=== PATIENT | male | born 1940 | race Caucasian/White ===

== ENCOUNTER 2022-03-24 18:41 | Inpatient (IN) | payer MEDICARE, SELFPAY ==
[2022-03-24 18:45] VITALS: BP 124/59; PULSE 120; RESP 18; O2SAT 95; BMI 18.3
--- NOTE | 2022-03-24 18:46 | XRR_ITS ---
PROCEDURE INFORMATION: Exam: XR Chest Exam date and time: 03/24/2022 6:51 PM Age: 81 years old Clinical indication: Shortness of breath; Additional info: SOB TECHNIQUE: Imaging protocol: Radiologic exam of the chest. Views: 1 view. COMPARISON: CR XR chest 2V* [id number] 03/21/2017 7:21 AM FINDINGS: Lungs: Severe emphysematous lung disease. Hyperinflated lungs. Right upper lobe opacities are nonspecific with significant distortion secondary to rightward chest rotation. Pleural spaces: Unremarkable. No pleural effusion. No pneumothorax. Heart/Mediastinum: Unremarkable. No cardiomegaly. Bones/joints: Unremarkable. XR/XR chest 1V portable [id number] IMPRESSION: 1. Right upper lobe pneumonia, fibrosis or mass cannot be excluded. Radiographic follow-up is recommended with neutral position PA and lateral views. 2. Severe centrilobular emphysema.
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
--- NOTE | 2022-03-24 18:54 | ECG_ITS ---
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 Measurements Intervals [place] Rate: 113 P: 0 DC: 0 QRS: 104 QRSD: 130 T: -28 QT: 302 QTc: 415 Interpretive Statements Multifocal atrial tachycardia RIGHT AXIS DEVIATION [QRS AXIS > 100] RIGHT BUNDLE BRANCH BLOCK [120+ ms QRS DURATION, UPRIGHT V1, 40+ ms S IN I/aVL/V4/V5/V6] ST DEVIATION AND MARKED T-WAVE ABNORMALITY, CONSIDER ANTEROLATERAL ISCHEMIA [-0.5+ mV T-WAVE IN I/aVL/V3-V6] ST DEVIATION AND MODERATE T-WAVE ABNORMALITY, CONSIDER INFERIOR ISCHEMIA [-0.1+ mV T-WAVE IN II/aVF] Features of right ventricular hypertrophy Compared to ECG 03/19/2017 04:59:41 Right-axis deviation now present.T-wave abnormality now present Possible ischemia now present.Sinus rhythm no longer present Electronically Signed On 03-25-2022 21:02:09 ELECTRICIAN'S ASSISTANT by Hilaria Ascencio M.D. [id number] f
[2022-03-24] MEDS: sodium chloride 0.9% 1,000 ML 999 ML IV (19:46)
[2022-03-24] MEDS: dexamethasone 10 mg/mL INJ IVP (19:48)
[2022-03-24] MEDS: cefTRIAXone 1,000 MG in sodium chloride 0.9% (plus) 50 ML 100 MG IV (19:50)
[2022-03-24 19:51] VITALS: BP 135/75; PULSE 99; RESP 14; O2SAT 96
[2022-03-24 19:52] LABS: Basophils % 0.5 %; Hematocrit 48.4 % (42.0-52.0); Hemoglobin 15.5 g/dL (11.7-16.6); Lymphocytes # 0.4 10^3/uL (0.8-4.8); Lymphocytes % 5.6 %; Mean Platelet Volume 9.5 fL (7.4-10.4); Monocytes # 0.5 10^3/uL (0.2-0.9); Monocytes % 7.2 %; Neutrophils % 86.2 %; Nucleated Red Blood Cells % 0 %; Platelet Count 213 10^3/cmm (130-400); Red Cell Distribution Width 13.2 % (12.1-15.1); White Blood Count 7.5 10^3/uL (4.0-10.0)
[2022-03-24 20:16] VITALS: PULSE 78; O2SAT 100
[2022-03-24 20:17] LABS: Troponin(5th) Baseline 67 ng/L (0-15)
[2022-03-24] MEDS: ipratropium-albuterol 3 mL Neb INHALATION (20:25)
[2022-03-24] MEDS: azithromycin 500 MG in sodium chloride 0.9% 250 ML 250 MG IV (20:33)
[2022-03-24 20:37] LABS: Alanine Aminotransferase 12 U/L (0-41); Albumin Level 4.1 g/dL (3.5-5.2); Alkaline Phosphatase 97 U/L (40-130); Aspartate Amino Transferase 24 U/L (0-40); Blood Urea Nitrogen 32 mg/dL (8-23); Calcium 8.7 mg/dL (8.5-10.5); Carbon Dioxide 28 mmol/L (22-29); Chloride 99 mmol/L (98-107); Globulin 2.7 g/dL (1.3-4.6); Glucose 121 mg/dL (65-115); NT Pro B Type Natriuretic Pept 5968 pg/mL (0-450); Osmolality Calculated 296 mOsm/kg (285-295); Sodium 139 mmol/L (136-145); Total Protein 6.8 g/dL (6.6-8.7)
[2022-03-24 20:38] LABS: Anion Gap 16.4 (5-19); Potassium 4.4 mmol/L (3.5-5.1)
[2022-03-24 20:46] VITALS: BP 120/49; PULSE 97; O2SAT 100
[2022-03-24 21:12] LABS: Influenza A by IFA Negative (Negative)
[2022-03-24 21:13] LABS: Influenza B by IFA Positive (Negative)
[2022-03-24 21:17] LABS: Lactate (Lactic Acid level) 1.6 mmol/L (0.5-2.2)
--- NOTE | 2022-03-24 21:18 | ECG_ITS ---
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 Measurements Intervals [place] Rate: 101 P: 87 HI: 151 QRS: 102 QRSD: 131 T: 14 QT: 359 QTc: 467 Interpretive Statements SINUS TACHYCARDIA WITH FREQUENT SUPRAVENTRICULAR PREMATURE COMPLEXES RIGHT AXIS DEVIATION [QRS AXIS > 100] RIGHT BUNDLE BRANCH BLOCK [120+ ms QRS DURATION, UPRIGHT V1, 40+ ms S IN I/aVL/V4/V5/V6] Compared to ECG 03/19/2017 04:59:41 Right-axis deviation now present Sinus rhythm no longer present Electronically Signed On 03-25-2022 21:23:27 PER ASSESSMENT NURSE by Hilaria Ascencio M.D. [id number]
[2022-03-24 21:45] VITALS: BP 95/52; PULSE 98; O2SAT 89
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
[2022-03-24 22:24] LABS: SARS Covid-2 Antigen negative (Negative)
[2022-03-24 22:51] LABS: Troponin 5 2HR 53.48 ng/L (0-15)
[2022-03-25] VITALS (12 sets, daily range): BP systolic 77–118; BP diastolic 40–69; PULSE 61–96; RESP 16–20; TEMP 36.4–37.2; O2SAT 91–100
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
[2022-03-25 01:48] LABS: C Reactive Protein 52.4 mg/L (0.0-4.9); Troponin 5 6HR 48.36 ng/L (0-15)
[2022-03-25 01:55] LABS: Procalcitonin 0.15 ng/mL (0-0.5)
[2022-03-25] MEDS: oseltamivir phosphate 75 mg Capsule PO (01:59)
[2022-03-25] MEDS: enoxaparin 40 mg/0.4 mL Syringe SUBCUT (01:59)
[2022-03-25] MEDS: pantoprazole 40 mg SDV IVP (02:20)
--- NOTE | 2022-03-25 03:03 | ECG_ITS ---
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 Measurements Intervals [place] Rate: 66 P: 86 [place]: 152 QRS: 96 QRSD: 129 T: -8 QT: 466 QTc: 490 Interpretive Statements SINUS RHYTHM WITH OCCASIONAL SUPRAVENTRICULAR PREMATURE COMPLEXES POSSIBLE LEFT ATRIAL ENLARGEMENT [-0.1mV P-WAVE IN V1/V2] RIGHT BUNDLE BRANCH BLOCK [120+ ms QRS DURATION, UPRIGHT V1, 40+ ms S IN I/aVL/V4/V5/V6] Compared to ECG 03/24/2022 21:18:45 Sinus tachycardia no longer present Right-axis deviation no longer present Electronically Signed On 03-25-2022 21:26:09 FRUIT GRADER OPERATOR by Hilaria Ascencio M.D. [email or web address] [email or web address] hospital medical centerIdenix [email or web address]/store/[id number]
[2022-03-25 04:21] LABS: Basophils % 0.2 %; Hematocrit 39.3 % (42.0-52.0); Hemoglobin 12.5 g/dL (11.7-16.6); Lymphocytes # 0.2 10^3/uL (0.8-4.8); Lymphocytes % 4.1 %; Mean Corpuscular HGB Conc 31.8 g/dL (30.0-36.0); Mean Corpuscular Hemoglobin 33.2 pg (28.0-34.0); Mean Corpuscular Volume 104.5 fl (80-94); Mean Platelet Volume 9.8 fL (7.4-10.4); Monocytes # 0.2 10^3/uL (0.2-0.9); Monocytes % 3.3 %; Neutrophils # 4.99 10^3/uL (1.8-7.7); Nucleated Red Blood Cells % 0 %; Platelet Count 196 10^3/cmm (130-400); Red Blood Count 3.76 10^6/uL (4.1-5.3); Red Cell Distribution Width 13.2 % (12.1-15.1); White Blood Count 5.4 10^3/uL (4.0-10.0)
[2022-03-25 04:31] LABS: INR 1.27 (0.8-1.2)
[2022-03-25 04:34] LABS: Lactic Sepsis W/Reflex 1.1 mmol/L (0.5-2.2)
[2022-03-25 04:47] LABS: NT Pro B Type Natriuretic Pept 6626 pg/mL (0-450)
[2022-03-25 04:48] LABS: Anion Gap 12.2 (5-19); Blood Urea Nitrogen 29 mg/dL (8-23); Calcium 7.9 mg/dL (8.5-10.5); Carbon Dioxide 28 mmol/L (22-29); Chloride 105 mmol/L (98-107); Glucose 122 mg/dL (65-115); Magnesium 2.1 mg/dL (1.7-2.3); Osmolality Calculated 299 mOsm/kg (285-295); Phosphorus 3.7 mg/dL (2.5-4.5); Potassium 4.2 mmol/L (3.5-5.1); Sodium 141 mmol/L (136-145); Thyroid Stimulating Hormone 0.35 uIU/mL (0.27-4.20)
[2022-03-25] MEDS: budesonide 0.5 mg/2 mL Neb 0.25 MG INHALATION ×2 (08:07→19:57)
[2022-03-25] MEDS: dexamethasone 10 mg/mL INJ 6 MG IVP (08:39)
[2022-03-25] MEDS: oseltamivir phosphate 30 mg Capsule PO ×2 (09:55→17:26)
--- NOTE | 2022-03-25 10:03 | PM.PN ---
Subjective Subjective: Patient is awake and alert Very pleasant cooperative Patient is stating that he lives in a his RV Does not cook very much He is endorsing losing weight Uses 4 L nasal cannula oxygen at baseline 18/10 Vitals/I&O/Wt Last Vital Signs Temp 97.6 F 03/25/22 08:00 Pulse 69 03/25/22 08:00 Resp 16 03/25/22 08:00 BP 94/50 03/25/22 08:00 Pulse Ox 98 03/25/22 08:00 O2 Del Method 03/25/22 08:00 O2 Flow Rate 4 03/25/22 06:52 FiO2 4 03/25/22 02:52 03/24/22 03/25/22 03/25/22 22:59 06:59 14:59 Intake Total 1300 / 1300 75 / 1375 480 / 480 Output Total 0 / 0 Balance 1300 / 1300 75 / 1375 480 / 480 Weight last 48 hrs Weight 45.359 kg Physical Exam Narrative: Patient is very pleasant and cooperative Awake and alert No active signs of stroke Nonfocal neuro exam At 4 L nasal cannula Bilateral breath sounds with mild rhonchi Cachectic, malnourished Disabled No active signs of meningoencephalitis Flat abdomen Lower extremity no edema Muscle mass loss Data 03/25/22 03:51 03/25/22 03:51 Micro: Microbiology 03/24/22 19:50 Blood Culture - Preliminary Blood SPECIMEN COLLECTED 03/24/22 19:45 Blood Culture - Preliminary Blood SPECIMEN COLLECTED A&P Assessment and plan (1) Altered mental status: (2) Community acquired pneumonia: (3) Influenza: (4) Atrial fibrillation: (5) COPD (chronic obstructive pulmonary disease): Plan Metabolic encephalopathy related to influenza and dehydration Patient is awake and alert Metabolic encephalopathy has resolved Currently on Tamiflu and ceftriaxone, will switch azithromycin to p.o. regimen Chronic hypoxia, COPD without acute exacerbation currently requiring 4 L without any respiratory distress DC Decadron Patient clinically is euvolemic to dehydrated with muscle mass loss, moderate protein calorie malnourishment Added Ensure Plus 3 times a day High BNP noted, Troponin trending down No active chest pain Will request echo Patient is full code Cardiac diet DVT prophylaxis on board secondary to low blood pressure I will give him 250 mL bolus Patient lives in an RV, states in case of an emergency family should be notified Attestations Medical Necessity Statement*: Continue medical management Time Spent in Patient Care: 40 Coding Level of Care Code Acute Dormitory Supervisor for Chg Fwd Diagnoses Altered mental status R41.82 Community acquired pneumonia J18.9 Influenza J11.1 Atrial fibrillation I48.91 COPD (chronic obstructive pulmonary disease) J44.9
--- NOTE | 2022-03-25 10:08 | USCV_ITS ---
Felipe Santana Age: 81 Gender: M : 1940 Exam Date: 03/25/2022 14:49 Ordering Phys: Quincy Carlin MD Technologist: Leonidas Gautam Exam Location: [facility] [place] Indication: CHRONIC HEART FAILURE BP: 130 / 76 HR: 79 Rhythm: Sinus Technical Quality: Suboptimal MEASUREMENTS (Male / Female) Normal Values 2D ECHO LA Diameter 3.6 cm IVC Diameter 1.0 cm M-MODE Aortic Annulus Diameter 3.1 cm LA Ao Ratio MM 1.2 MV E Point Septal Separation 0.6 cm DOPPLER AV Peak Velocity 89.0 cm/s LVOT Peak Velocity 71.0 cm/s MV Area PHT 5.9 cm squared Mitral E to A Ratio 0.6 MV E' Velocity 41.0 cm/s TR Peak Velocity 149.0 cm/s TR Peak Gradient 8.9 mmHg RV Acceleration Time 0.1 s FINDINGS Left Ventricle Normal left ventricular cavity size. Normal left ventricular systolic function. Left ventricular ejection fraction is estimated at 55-60 %. This study is inadequate for estimation of regional wall motion abnormality. Right Ventricle Normal right ventricular size and systolic function. Right Atrium Normal right atrial size. Left Atrium Probably normal left atrial size. Mitral Valve Structurally normal mitral valve. Trace mitral valve regurgitation. Aortic Valve Aortic valve not well visualized. Probably tricuspid aortic valve. No aortic valve stenosis. No aortic valve regurgitation. Tricuspid Valve Structurally normal tricuspid valve. Trace tricuspid valve regurgitation. Pulmonic Valve Pulmonic valve not well visualized. Pericardium No pericardial effusion. Aorta Aorta not well visualized. IVC Normal IVC dimension with >50% respiratory change of the inferior vena cava. CONCLUSIONS 1. This is a technically difficult study with limited windows. 2. Normal left ventricular cavity size. Normal left ventricular systolic function. Left ventricular ejection fraction is estimated at 55-60 %. This study is inadequate for estimation of regional wall motion abnormality. 3. No prior similar studies to compare. Polly Diallo MD (Electronically Signed) Final Date: 25 March 2022 17:36 S
[2022-03-25] MEDS: sodium chloride 0.9% 250 ML IV (12:19)
--- NOTE | 2022-03-25 18:55 | PC.NURSE ---
Bedside report given to Mona LIND at this time.
[2022-03-25] MEDS: cefTRIAXone 1,000 MG in sodium chloride 0.9% (plus) 50 ML 100 MG IV (20:13)
[2022-03-26] VITALS (7 sets, daily range): BP systolic 90–118; BP diastolic 62–84; PULSE 81–94; RESP 15–22; TEMP 36.7–37.7; O2SAT 95–98
[2022-03-26] MEDS: enoxaparin 40 mg/0.4 mL Syringe SUBCUT (01:46)
[2022-03-26] MEDS: pantoprazole 40 mg SDV IVP (01:46)
[2022-03-26 04:12] LABS: Basophils % 0.3 %; Eosinophils % 0.3 %; Hematocrit 43.4 % (42.0-52.0); Hemoglobin 13.6 g/dL (11.7-16.6); Lymphocytes # 0.6 10^3/uL (0.8-4.8); Lymphocytes % 5.7 %; Mean Corpuscular HGB Conc 31.3 g/dL (30.0-36.0); Mean Corpuscular Hemoglobin 32.7 pg (28.0-34.0); Mean Corpuscular Volume 104.3 fl (80-94); Mean Platelet Volume 10.3 fL (7.4-10.4); Monocytes # 0.8 10^3/uL (0.2-0.9); Monocytes % 7.7 %; Neutrophils # 8.43 10^3/uL (1.8-7.7); Neutrophils % 85.6 %; Nucleated Red Blood Cells % 0 %; Platelet Count 198 10^3/cmm (130-400); Red Blood Count 4.16 10^6/uL (4.1-5.3); Red Cell Distribution Width 13.3 % (12.1-15.1); White Blood Count 9.9 10^3/uL (4.0-10.0)
[2022-03-26 04:45] LABS: Blood Urea Nitrogen 32 mg/dL (8-23); Calcium 8.4 mg/dL (8.5-10.5); Carbon Dioxide 28 mmol/L (22-29); Chloride 102 mmol/L (98-107); Glucose 88 mg/dL (65-115); Osmolality Calculated 292 mOsm/kg (285-295); Sodium 138 mmol/L (136-145)
[2022-03-26 04:50] LABS: Anion Gap 12.6 (5-19); Potassium 4.6 mmol/L (3.5-5.1)
[2022-03-26] MEDS: budesonide 0.5 mg/2 mL Neb 0.25 MG INHALATION ×2 (09:12→22:47)
[2022-03-26] MEDS: ipratropium-albuterol 3 mL Neb INHALATION (09:12)
--- NOTE | 2022-03-26 10:30 | PM.DCS ---
Discharge Providers Date of Admission: 03/24/22 21:26 Date of Discharge: March 26, 2022 Attending Provider at Admission: Juan C Sargent MD Attending Provider at Discharge: Quincy Carlin MD Diagnoses at Discharge Discharge Diagnosis (1) Altered mental status: Status: Acute (2) Community acquired pneumonia: Status: Acute (3) Influenza: Status: Acute (4) Atrial fibrillation: Status: Acute (5) COPD (chronic obstructive pulmonary disease): Status: Acute Reason for Visit Reason for Visit: SOB/ COPD/ AFIB Discharge Data Studies Completed and Pending Completed Studies During Hospitalization Category Date Time Status XR chest 1V portable [id number] Stat Exams 03/24/22 18:46 Completed CV. echo complete* [id number] Routine Ultrasound 03/25/22 10:08 Completed Pending at discharge Category Date Time Status Blood Culture Stat Lab 03/24/22 19:50 Results Sputum Culture and Gram Stain Stat Lab 03/24/22 22:30 Uncollected Radiology Impressions Chest X-Ray 03/24/22 18:46 IMPRESSION: 1. Right upper lobe pneumonia, fibrosis or mass cannot be excluded. Radiographic follow-up is recommended with neutral position PA and lateral views. 2. Severe centrilobular emphysema. Laboratory Results WBC 9.9 10^3/uL (4.0-10.0) 03/26/22 03:46 RBC 4.16 10^6/uL (4.1-5.3) 03/26/22 03:46 Hgb 13.6 g/dL (11.7-16.6) 03/26/22 03:46 Hct 43.4 % (42.0-52.0) 03/26/22 03:46 MCV 104.3 fl (80-94) H 03/26/22 03:46 MCH 32.7 pg (28.0-34.0) 03/26/22 03:46 MCHC 31.3 g/dL (30.0-36.0) 03/26/22 03:46 RDW 13.3 % (12.1-15.1) 03/26/22 03:46 Plt Count 198 10^3/cmm (130-400) 03/26/22 03:46 MPV 10.3 fL (7.4-10.4) 03/26/22 03:46 Neut % (Auto) 85.6 % 03/26/22 03:46 Lymph % (Auto) 5.7 % 03/26/22 03:46 [place] % (Auto) 7.7 % 03/26/22 03:46 Eos % (Auto) 0.3 % 03/26/22 03:46 Baso % (Auto) 0.3 % 03/26/22 03:46 Neut # (Auto) 8.43 10^3/uL (1.8-7.7) H 03/26/22 03:46 Lymph # (Auto) 0.6 10^3/uL (0.8-4.8) L 03/26/22 03:46 [place] # (Auto) 0.8 10^3/uL (0.2-0.9) 03/26/22 03:46 Eos # (Auto) 0.0 10^3/uL (0.0-0.8) 03/26/22 03:46 Baso # (Auto) 0.0 10^3/uL (0.0-0.1) 03/26/22 03:46 Nucleated RBC % (auto) 0 % 03/26/22 03:46 Nucleated RBCs # 0.0 /100WBC 03/26/22 03:46 PT 16.20 SECONDS (12.1-14.9) H 03/25/22 03:51 INR 1.27 (0.8-1.2) H 03/25/22 03:51 Sodium 138 mmol/L (136-145) 03/26/22 03:46 Potassium 4.6 mmol/L (3.5-5.1) 03/26/22 03:46 Chloride 102 mmol/L (98-107) 03/26/22 03:46 Carbon Dioxide 28 mmol/L (22-29) 03/26/22 03:46 Anion Gap 12.6 (5-19) 03/26/22 03:46 BUN 32 mg/dL (8-23) H 03/26/22 03:46 Creatinine 0.9 mg/dL (0.7-1.2) 03/26/22 03:46 GFR Calculation Not Reportable 03/26/22 03:46 Glucose 88 mg/dL (65-115) 03/26/22 03:46 Calculated Osmolality 292 mOsm/kg (285-295) 03/26/22 03:46 Lactic Acid 1.1 mmol/L (0.5-2.2) 03/25/22 03:51 Lactate 1.6 mmol/L (0.5-2.2) 03/24/22 19:20 Calcium 8.4 mg/dL (8.5-10.5) L 03/26/22 03:46 Phosphorus 3.7 mg/dL (2.5-4.5) 03/25/22 03:51 Magnesium 2.1 mg/dL (1.7-2.3) 03/25/22 03:51 Total Bilirubin 1.0 mg/dL (0.15-1.2) 03/24/22 19:29 AST 24 U/L (0-40) 03/24/22 19: ALT 12 U/L (0-41) 03/24/22 19:29 Alkaline Phosphatase 97 U/L (40-130) 03/24/22 19:29 Troponin T Baseline 67 ng/L (0-15) H 03/24/22 19:29 Troponin T 120 Minute 53.48 ng/L (0-15) H 03/24/22 22:26 Delta Troponin T -13.52 ABS# (0-10) L 03/24/22 22:26 Troponin T Hi Sens 6Hr 48.36 ng/L (0-15) H 03/25/22 01:14 Troponin T Hi Sens 6Hr Delta -18.64 ng/L (0-12) L 03/25/22 01:14 C-Reactive Protein 52.4 mg/L (0.0-4.9) H 03/25/22 01:14 NT-Pro-B Natriuret Pep 6626 pg/mL (0-450) H 03/25/22 03:51 Total Protein 6.8 g/dL (6.6-8.7) 03/24/22 19:29 Albumin 4.1 g/dL (3.5-5.2) 03/24/22 19: Globulin 2.7 g/dL (1.3-4.6) 03/24/22 19:29 Procalcitonin 0.15 ng/mL (0-0.5) 03/25/22 01:14 TSH 0.35 uIU/mL (0.27-4.20) 03/25/22 03:51 Influenza Type A Ag Negative (Negative) 03/24/22 Unknown Influenza Type B Ag Positive (Negative) H 03/24/22 Unknown SARS-CoV-2 Ag (Rapid) negative (Negative) 03/24/22 21:47 Vitals Last Vital Signs Temp 98.3 F 03/26/22 07:19 Pulse 82 03/26/22 08:00 Resp 16 03/26/22 08:00 BP 115/81 03/26/22 07:19 Pulse Ox 97 03/26/22 08:00 O2 Del Method 03/26/22 08:00 O2 Flow Rate 3.5 03/26/22 08:00 FiO2 4 03/25/22 02:52 Discharge Plan Discharge Patient Disposition: Home Condition: Stable Prescriptions: New Trelegy Ellipta 100-62.5-25 mcg blister with device 1 inh inhalation DAILY Qty: 60 3RF albuterol sulfate 90 mcg/actuation HFA aerosol inhaler 2 inh inhalation Q8H PRN (Reason: shortness of breath or wheezing) Qty: 6.7 2RF oseltamivir [Tamiflu] 30 mg Capsule 30 mg PO BID Qty: 6 0RF azithromycin 250 mg Tablet 500 mg PO DAILY Qty: 7 0RF Discontinued ipratropium bromide 21 mcg (0.03 %) spray,non-aerosol See Rx Instructions .ROUTE .COMPLEX Rx Instructions: intranasally DIRECTED Trelegy Ellipta 200-62.5-25 mcg blister with device See Rx Instructions .ROUTE .COMPLEX Rx Instructions: 2 inh inhaled ; DIRECTED Discharge Orders: Discharge Order (Routine); Ordered 03/26/22 Ordered By: Quincy Carlin Referrals: Manuel Guallpa MD [Physician] - 03/31/22 2:15 pm Discharge Diet: Regular Discharge Activity: Increase activity as tolerated Patient Instructions: Opioid Safety Coding Level of Care Code Acute Chg FW CT note Diagnoses Altered mental status R41.82 Community acquired pneumonia J18.9 Influenza J11.1 Atrial fibrillation I48.91 COPD (chronic obstructive pulmonary disease) J44.9
[2022-03-26] MEDS: oseltamivir phosphate 30 mg Capsule PO ×2 (10:48→17:18)
[2022-03-26] MEDS: azithromycin 250 mg Tablet 500 MG PO (10:49)
--- NOTE | 2022-03-26 11:53 | PM.PN ---
Subjective Subjective: Oxygen requirement has not worsened Afebrile No significant leukocytosis Multiple discussions with the family, patient does not want to go to any assisted living or residential, sister wants to take him to [place] to an assisted living She has medical power of admitted attorneys as well Patient is able to make decision for himself Patient will be able to be discharged tomorrow morning Will refill his meds today Vitals/I&O/Wt Last Vital Signs Temp 98.1 F 03/26/22 11:31 Pulse 86 03/26/22 11:31 Resp 16 03/26/22 11:31 BP 112/63 03/26/22 11:31 Pulse Ox 98 03/26/22 11:31 O2 Del Method 03/26/22 11:31 O2 Flow Rate 3.5 03/26/22 11:31 FiO2 4 03/25/22 02:52 03/25/22 03/26/22 03/26/22 22:59 06:59 14:59 Intake Total 500 / 1230 Output Total 350 / 850 Balance 150 / 380 Weight last 48 hrs Weight 45.359 kg Physical Exam Narrative: Awake and alert Nonfocal neuro exam Currently on 3.5 L nasal cannula Bilateral breath sound with rhonchi No active wheezing Hemodynamically stable Abdomen soft No signs of edema Cachectic, malnourished Awake alert GCS 15 Oriented x3 Data 03/26/22 03:46 03/26/22 03:46 Micro: Microbiology 03/24/22 19:50 Blood Culture - Preliminary Blood NEGATIVE TO DATE 03/24/22 19:45 Blood Culture - Preliminary Blood NEGATIVE TO DATE A&P Assessment and plan (1) Altered mental status: (2) Community acquired pneumonia: (3) Influenza: (4) COPD (chronic obstructive pulmonary disease): Plan Metabolic encephalopathy: Resolved Influenza related worsening of shortness of breath and hypoxia has resolved currently on 3.5 L Discontinue ceftriaxone continue azithromycin and Tamiflu COPD without significant exacerbation Cachectic, malnourished moderate protein calorie malnourishment Ensure Plus added Discharge tomorrow Cardiac diet DVT prophylaxis on board High BNP however EF is preserved diastolic dysfunction without acute exacerbation does not need Lasix EKG changes likely COPD related Attestations Medical Necessity Statement*: Discharge tomorrow Time Spent in Patient Care: 40 Coding Level of Care Code Acute Automatic Packer Operator for riya Fwserena Diagnoses Altered mental status R41.82 Community acquired pneumonia J18.9 Influenza J11.1 COPD (chronic obstructive pulmonary disease) J44.9
[2022-03-26 12:58] LABS: D Dimer 1.16 ug/mIFEU (0-0.59)
[2022-03-27] VITALS: BP 97/52; PULSE 77; RESP 14; TEMP 36.6; O2SAT 98
[2022-03-27] MEDS: enoxaparin 40 mg/0.4 mL Syringe SUBCUT (01:28)
[2022-03-27] MEDS: pantoprazole 40 mg SDV IVP (01:28)
[2022-03-27 04:00] VITALS: BP 93/40; PULSE 79; RESP 15; TEMP 36.8; O2SAT 93
[2022-03-27 07:13] VITALS: BP 102/59; PULSE 75; RESP 16; TEMP 36.8; O2SAT 95
--- NOTE | 2022-03-27 07:47 | CTR_ITS ---
PROCEDURE INFORMATION: Exam: CTA Chest With Contrast Exam date and time: 03/27/2022 8:29 AM Age: 81 years old Clinical indication: Dyspnea; Additional info: Hypoxia TECHNIQUE: Imaging protocol: Computed tomographic angiography of the chest with contrast. 3D rendering (Not supervised by radiologist): MIP and/or 3D reconstructed images were created by the technologist. Radiation optimization: All CT scans at this facility use at least one of these dose optimization techniques: automated exposure control; mA and/or kV adjustment per patient size (includes targeted exams where dose is matched to clinical indication); or iterative reconstruction. Contrast material: OMNI 350; Contrast volume: 65 ml; Contrast route: INTRAVENOUS (IV); COMPARISON: CR (CHEST, ) 03/24/2022 6:51 PM RADIATION DOSE METRICS: Total DLP (mGy-cm): 152.23 FINDINGS: Pulmonary arteries: Normal. No pulmonary emboli. Aorta: Unremarkable. No aortic aneurysm. No aortic dissection. Lungs: Advanced destructive emphysema. Diffuse bronchial wall thickening. Areas of mucoid impaction within the airways. Right lower lobe calcified granuloma. Biapical pleuroparenchymal scarring. There is some mild consolidation in the left lower lobe. Pleural spaces: Unremarkable. No pneumothorax. No pleural effusion. Heart: Unremarkable. No cardiomegaly. No pericardial effusion. Lymph nodes: Calcified right hilar lymph nodes. Liver: Small hypodensities in the liver are incompletely characterized. Kidneys and ureters: Bilateral renal cysts. Bones/joints: Unremarkable. No acute fracture. Soft tissues: Unremarkable. CT/CT angio chest PE protcl [id number] IMPRESSION: 1. Left lower lobe consolidation likely reflects aspiration versus pneumonia. 2. No pulmonary emboli identified. 3. Advanced destructive emphysema. COMMENTS: Consistent with the [place] [employer]'s Incidental Findings Committee white paper (J Am Yajaira Radiol 2018): Any incidental renal lesion less than 1 cm or classified as too small to characterize, or any incidental cystic renal lesion characterized as simple-appearing, is likely benign. No follow-up imaging is recommended for these lesions per consensus recommendations based on imaging criteria.
[2022-03-27] MEDS: iohexol 350 mg/mL 500 mL Btl (per mL) IV (08:42)
[2022-03-27] MEDS: oseltamivir phosphate 30 mg Capsule PO (09:39)
[2022-03-27] MEDS: azithromycin 250 mg Tablet 500 MG PO (09:39)
[2022-03-27 09:46] VITALS: BP 102/59; PULSE 75; RESP 16; TEMP 36.8; O2SAT 95
--- NOTE | 2022-03-27 10:00 | PC.SOCIAL ---
IMM update IMM updated with patient. Verbalized an understanding. Initialled, dated, timed, and placed in chart.
--- NOTE | 2022-03-27 10:02 | PC.NURSE ---
Discharge Note Patient discharged to home via private vehicle accompanied by lee ann. Discharge instructions reviewed with patient and/or direct sales representative. Mobile pharmacy medications and/or prescriptions provided. Belongings/home medications returned.
--- NOTE | 2022-03-27 10:06 | PM.DCS ---
Discharge Providers Date of Admission: 03/24/22 21:26 Date of Discharge: March 27, 2022 Attending Provider at Admission: Juan C Sargent MD Attending Provider at Discharge: Quincy Carlin MD Diagnoses at Discharge Discharge Diagnosis (1) Altered mental status: Status: Acute (2) Community acquired pneumonia: Status: Acute (3) Influenza: Status: Acute (4) COPD (chronic obstructive pulmonary disease): Status: Acute Reason for Visit Reason for Visit: SOB/ COPD/ AFIB Hospital Course Hospital Course [id number] male who was admitted for management of metabolic encephalopathy related to hypoxia, he was diagnosed with influenza, requires 2 to 3 L of oxygen, he lives in an , family was adamant that he should be discharged to a longterm however patient is awake and alert able to make decision for himself, he does not want to go to any assisted living or longterm, his D-dimer is 1.1 CTA did not show any signs of PE, CT scan of chest is consistent with left lower lobe pneumonia he has advanced COPD. Cachectic and malnourished I would recommend palliative consult however patient is not interested in pursuing further care. Sister is stating that she would like to go to the court to get medical power of occupational therapy assist and take him to [place] assisted living facility. Niece is here to pick him up give him a ride back to his place today. Patient had high BNP however echo showed preserved ejection fraction, he is actually very dehydrated and required IV fluids throughout hospitalization. Cultures remain negative Physical Exam Narrative: Awake and alert Nonfocal neuro exam Currently requiring 4 L nasal cannula Abdomen soft EOMI, PERRLA Cachectic, malnourished No active distress S1, S2 blood pressure 102/59 mmHg Discharge Data Studies Completed and Pending Completed Studies During Hospitalization Category Date Time Status CTA PE [CT angio chest PE protcl [id number]] Stat Cat Scan 03/27/22 07:47 Completed XR chest 1V portable [id number] Stat Exams 03/24/22 18:46 Completed CV. echo complete* [id number] Routine Ultrasound 03/25/22 10:08 Completed Pending at discharge Category Date Time Status Blood Culture Stat Lab 03/24/22 19:50 Results Sputum Culture and Gram Stain Stat Lab 03/24/22 22:30 Uncollected Radiology Impressions Chest X-Ray 03/24/22 18:46 IMPRESSION: 1. Right upper lobe pneumonia, fibrosis or mass cannot be excluded. Radiographic follow-up is recommended with neutral position PA and lateral views. 2. Severe centrilobular emphysema. Chest CTA 03/27/22 07:47 IMPRESSION: 1. Left lower lobe consolidation likely reflects aspiration versus pneumonia. 2. No pulmonary emboli identified. 3. Advanced destructive emphysema. COMMENTS: Consistent with the [place] [employer]'s Incidental Findings Committee white paper (J Am Yajaira Radiol 2018): Any incidental renal lesion less than 1 cm or classified as too small to characterize, or any incidental cystic renal lesion characterized as simple-appearing, is likely benign. No follow-up imaging is recommended for these lesions per consensus recommendations based on imaging criteria. Laboratory Results WBC 9.9 10^3/uL (4.0-10.0) 03/26/22 03:46 RBC 4.16 10^6/uL (4.1-5.3) 03/26/22 03:46 Hgb 13.6 g/dL (11.7-16.6) 03/26/22 03:46 Hct 43.4 % (42.0-52.0) 03/26/22 03:46 MCV 104.3 fl (80-94) H 03/26/22 03:46 MCH 32.7 pg (28.0-34.0) 03/26/22 03:46 MCHC 31.3 g/dL (30.0-36.0) 03/26/22 03:46 RDW 13.3 % (12.1-15.1) 03/26/22 03:46 Plt Count 198 10^3/cmm (130-400) 03/26/22 03:46 MPV 10.3 fL (7.4-10.4) 03/26/22 03:46 Neut % (Auto) 85.6 % 03/26/22 03:46 Lymph % (Auto) 5.7 % 03/26/22 03:46 [place] % (Auto) 7.7 % 03/26/22 03:46 Eos % (Auto) 0.3 % 03/26/22 03:46 Baso % (Auto) 0.3 % 03/26/22 03:46 Neut # (Auto) 8.43 10^3/uL (1.8-7.7) H 03/26/22 03:46 Lymph # (Auto) 0.6 10^3/uL (0.8-4.8) L 03/26/22 03:46 [place] # (Auto) 0.8 10^3/uL (0.2-0.9) 03/26/22 03:46 Eos # (Auto) 0.0 10^3/uL (0.0-0.8) 03/26/22 03:46 Baso # (Auto) 0.0 10^3/uL (0.0-0.1) 03/26/22 03:46 Nucleated RBC % (auto) 0 % 03/26/22 03:46 Nucleated RBCs # 0.0 /100WBC 03/26/22 03:46 PT 16.20 SECONDS (12.1-14.9) H 03/25/22 03:51 INR 1.27 (0.8-1.2) H 03/25/22 03:51 D-Dimer 1.16 ug/mIFEU (0-0.59) H 03/26/22 12:23 Sodium 138 mmol/L (136-145) 03/26/22 03:46 Potassium 4.6 mmol/L (3.5-5.1) 03/26/22 03:46 Chloride 102 mmol/L (98-107) 03/26/22 03:46 Carbon Dioxide 28 mmol/L (22-29) 03/26/22 03:46 Anion Gap 12.6 (5-19) 03/26/22 03:46 BUN 32 mg/dL (8-23) H 03/26/22 03:46 Creatinine 0.9 mg/dL (0.7-1.2) 03/26/22 03:46 GFR Calculation Not Reportable 03/26/22 03:46 Glucose 88 mg/dL (65-115) 03/26/22 03:46 Calculated Osmolality 292 mOsm/kg (285-295) 03/26/22 03:46 Lactic Acid 1.1 mmol/L (0.5-2.2) 03/25/22 03:51 Lactate 1.6 mmol/L (0.5-2.2) 03/24/22 19:20 Calcium 8.4 mg/dL (8.5-10.5) L 03/26/22 03:46 Phosphorus 3.7 mg/dL (2.5-4.5) 03/25/22 03:51 Magnesium 2.1 mg/dL (1.7-2.3) 03/25/22 03:51 Total Bilirubin 1.0 mg/dL (0.15-1.2) 03/24/22 19:29 AST 24 U/L (0-40) 03/24/22 19:29 ALT 12 U/L (0-41) 03/24/22 19:29 Alkaline Phosphatase 97 U/L (40-130) 03/24/22 19:29 Troponin T Baseline 67 ng/L (0-15) H 03/24/22 19:29 Troponin T 120 Minute 53.48 ng/L (0-15) H 03/24/22 22:26 Delta Troponin T -13.52 ABS# (0-10) L 03/24/22 22:26 Troponin T Hi Sens 6Hr 48.36 ng/L (0-15) H 03/25/22 01:14 Troponin T Hi Sens 6Hr Delta -18.64 ng/L (0-12) L 03/25/22 01:14 C-Reactive Protein 52.4 mg/L (0.0-4.9) H 03/25/22 01:14 NT-Pro-B Natriuret Pep 6626 pg/mL (0-450) H 03/25/22 03:51 Total Protein 6.8 g/dL (6.6-8.7) 03/24/22 19:29 Albumin 4.1 g/dL (3.5-5.2) 03/24/22 19:29 Globulin 2.7 g/dL (1.3-4.6) 03/24/22 19:29 Procalcitonin 0.15 ng/mL (0-0.5) 03/25/22 01:14 TSH 0.35 uIU/mL (0.27-4.20) 03/25/22 03:51 Influenza Type A Ag Negative (Negative) 03/24/22 Unknown Influenza Type B Ag Positive (Negative) H 03/24/22 Unknown SARS-CoV-2 Ag (Rapid) negative (Negative) 03/24/22 21:47 Vitals Last Vital Signs Temp 98.2 F 03/27/22 09:46 Pulse 75 03/27/22 09:46 Resp 16 03/27/22 09:46 BP 102/59 03/27/22 09:46 Pulse Ox 95 03/27/22 09:46 O2 Del Method 03/27/22 07:13 O2 Flow Rate 4 03/27/22 07:13 FiO2 4 03/25/22 02:52 Discharge Plan Discharge Patient Disposition: Home Condition: Stable Prescriptions: New azithromycin 250 mg Tablet 500 mg PO DAILY Qty: 7 0RF Tamiflu 30 mg Capsule 30 mg PO BID Qty: 6 0RF Trelegy Ellipta 100-62.5-25 mcg blister with device 1 inh inhalation DAILY Qty: 60 3RF albuterol sulfate 90 mcg/actuation HFA aerosol inhaler 2 inh inhalation Q8H PRN (Reason: shortness of breath or wheezing) Qty: 6.7 2RF Discontinued ipratropium bromide 21 mcg (0.03 %) spray,non-aerosol See Rx Instructions .ROUTE .COMPLEX Rx Instructions: intranasally DIRECTED Trelegy Ellipta 200-62.5-25 mcg blister with device See Rx Instructions .ROUTE .COMPLEX Rx Instructions: 2 inh inhaled ; DIRECTED Discharge Orders: Discharge Order (Routine); Ordered 03/26/22 Ordered By: Quincy Carlin Referrals: Manuel Guallpa MD [Physician] - 03/31/22 2:15 pm Discharge Diet: Regular Discharge Activity: Increase activity as tolerated Patient Instructions: Albuterol (By breathing), Azithromycin (By mouth), Oseltamivir (By mouth), Fluticasone/Umeclidinium/Vilanterol (By breathing) (Trelegy Ellipta), Influenza (DC), Opioid Safety Discharge Attestations Time Spent in Discharge Care*: less than 30 min Quality Metrics Clinical Quality Measures [ No reported AMI, CVA or VTE this stay] Coding Level of Care Code Acute Chg FW DC note Diagnoses Altered mental status R41.82 Community acquired pneumonia J18.9 Influenza J11.1 COPD (chronic obstructive pulmonary disease) J44.9
== END 2022-03-27 10:44 | disposition home or self-care (01) | DRG 193 ==
LOC: ER 21:28 → MEDSURG 21:46
PROVIDERS: Admitting Provider Family Medicine; Emergency Provider Emergency Medicine; Visit Provider Internal Medicine
DX: J10.00 Influenza due to other identified influenza virus with unspecified type of pneumonia (principal); G93.41 Metabolic encephalopathy; E44.0 Moderate protein-calorie malnutrition; Z68.1 Body mass index [BMI] 19.9 or less, adult; J10.81 Influenza due to other identified influenza virus with encephalopathy; J43.2 Centrilobular emphysema; E86.0 Dehydration; Z99.81 Dependence on supplemental oxygen; R00.0 Tachycardia, unspecified
CPT/HCPCS: 36415; 71045; 71275; 80048; 80053; 83605; 83735; 83880; 84100; 84145; 84443; 84484; 85025; 85378; 85610; 86140; 87040; 87426; 87804; 92523; 92610; 93005; 93306; 94640; 96365; 96367; 96372; 96375; 97116; 97161; 97165; 97530; 99285; C9113; J0456; J0696; J1100; J1650; J7030; J7050; J7626; Q0144; Q9967